=== PATIENT | female | born 1945 | race Caucasian/White ===

== ENCOUNTER → 2017-12-21 | Emergency (ER) | payer OTHER ==
[~2017-12-21] VITALS: Ht 152.4 cm; Wt 52.2 kg
[~2017-12-21] MED LIST: ABANEU-SL TABL1 EACH; DILTIAZEM100 MG/100; LIPITOR40 MG; PERCOCET 2.5-31 EACH; RAYOS1 MG; VITAMIN D2400 UNIT
== END | disposition home or self-care (01) ==
LOC: ER 09:16
DX: G89.11 Acute pain due to trauma (principal); M25.551 Pain in right hip; M25.561 Pain in right knee; M16.11 Unilateral primary osteoarthritis, right hip

== ENCOUNTER 2022-02-21 06:00 | Day surgery (SDC) | payer OTHER ==
[~2022-02-21 06:00] MED LIST changes: +B COMPLEX1 EAC1 PO; +CALCIU PO; +FAM PO; +LISINOP PO; +MAGNES PO; +PRENISONE PO; +SINGULAIR10 MG PO
== END 2022-02-21 14:30 | disposition home or self-care (01) ==
LOC: CIR.AMB 06:00
PROVIDERS: ATTEND Surgery Surgery of the Hand
DX: M06.842 Other specified rheumatoid arthritis, left hand (principal); M65.841 Other synovitis and tenosynovitis, right hand; Z88.6 Allergy status to analgesic agent; Z88.0 Allergy status to penicillin; Z91.013 Allergy to seafood; I10 Essential (primary) hypertension; Z87.891 Personal history of nicotine dependence; F10.21 Alcohol dependence, in remission; Z20.822 Contact with and (suspected) exposure to COVID-19; J45.909 Unspecified asthma, uncomplicated; Z86.16 Personal history of COVID-19

== ENCOUNTER 2022-08-22 05:35 | Day surgery (SDC) | payer OTHER ==
[~2022-08-22] VITALS: Ht 149.9 cm; Wt 49.9 kg
[~2022-08-22 05:35] MED LIST changes: +B12 ACTIVE1000 MCG PO; +BIOTIN1 M1 PO; +MILLIPRED5 MG PO; +RINVOQ30 MG PO; +VITAMIN C100 MG PO; +ZESTRIL20 MG PO
== END 2022-08-22 15:40 | disposition home or self-care (01) ==
LOC: CIR.AMB 05:35
PROVIDERS: ATTEND Surgery Surgery of the Hand
DX: M06.841 Other specified rheumatoid arthritis, right hand (principal); M65.841 Other synovitis and tenosynovitis, right hand; J45.909 Unspecified asthma, uncomplicated; E78.5 Hyperlipidemia, unspecified; Z88.0 Allergy status to penicillin; Z88.6 Allergy status to analgesic agent; Z91.013 Allergy to seafood